=== PATIENT | male | born 1950 | race Caucasian/White ===

== ENCOUNTER 2016-12-14 09:01 | Day surgery (SDC) | payer MEDICARE, OTHER ==
[~2016-12-14] VITALS: Ht 177.8 cm; Wt 81.0 kg
[~2016-12-14 09:01] MED LIST: BACTRIM 400 MG-1 TAB PO; DOXYCYCLINE 10100 MG PO; FLOMAX 0.40.4 MG/CAP PO; PERCOCET 325 MG1 TA2 PO; PROSCAR 5MG5 MG PO; PYRIDIUM 100MG100 MG PO; SENOKOT S 50 MG1 TAB PO; SULFAMETHOXAZOLE-TMP PO; TAMSULOSIN 0.4 MG PO
[2016-12-14 09:44] VITALS: BP 131/78; PULSE 65; TEMP 97.6
[2016-12-14] MEDS ORDERED: MULTI VITAMINS1 TAB PO (09:46)
[2016-12-14 15:45] VITALS: BP 111/67; PULSE 64; TEMP 97.5
[2016-12-14 16:00] VITALS: BP 127/70; PULSE 60
[2016-12-14 16:15] VITALS: BP 130/68; PULSE 63
[2016-12-14 16:30] VITALS: BP 129/69; PULSE 62
[2016-12-14] MEDS ORDERED: DILAUDID 2MG TAB2 MG PO (16:41)
[2016-12-14] MEDS ORDERED: ZOFRAN ODT4 MG PO (16:42)
== END 2016-12-14 17:09 | disposition home or self-care (01) ==
LOC: SDCO 09:01
DX: K40.91 Unilateral inguinal hernia, without obstruction or gangrene, recurrent (principal)
CPT/HCPCS: C1781; J0690; J1100; J1170; J1885; J2405; J2704; J3010; J7120